=== PATIENT | female | born 1985 | race Caucasian/White ===

== ENCOUNTER → 2016-07-10 | Outpatient (CLI) | payer OTHER ==
[2016-07-10 16:53] LABS: BASO % 0.2 %; EOS % 0.6 %; HEMATOCRIT 40.6 % (37-47); LYMPH % 24.3 %; LYMPH ABS # 1.53 K/uL (1.2-3.4); MEAN CELL VOLUME 80.2 fL (80-100); MEAN CORPUSCULAR HEMOGLOBIN 28.1 pg (25-34); MEAN PLATELET VOLUME 11.4 fL (7.4-10.4); MONO % 5.7 %; NEUT % 69.2 %; PLATELET COUNT 220 K/uL (130-400); RED BLOOD COUNT 5.06 M/uL (4.2-5.4)
[2016-07-10 16:54] LABS: BASO ABS # 0.01 K/uL (0-0.2); COMPLETE YES
[2016-07-10 17:02] LABS: C-REACTIVE PROTEIN 0.94 mg/dl (0-0.29); RHEUMATOID FACTOR < 10.0 U/mL (0-15)
[2016-07-10 17:12] LABS: SYNOVIAL FLUID APPEARANCE CLEAR; SYNOVIAL FLUID COLOR YELLOW; SYNOVIAL FLUID MONONUC RELAT 67.9 %; SYNOVIAL FLUID POLYNUC RELAT 32.1 %
[2016-07-10 17:35] LABS: LYME DISEASE AB IGG NEG (NEG); LYME DISEASE AB IGM NEG (NEG)
[2016-07-12 15:32] LABS: LYME DNA PCR CSF OR SYNOVIAL Not detected (Not Detected); LYME DNA SOURCE Synovial Fluid
[2016-07-13 20:18] LABS: HLA-B27** TC 528X NEGATIVE (NEGATIVE)
== END | disposition home or self-care (01) ==
LOC: C.LABBC 12:40
PROVIDERS: ATTEND Orthopaedic Surgery Sports Medicine
DX: M25.562 Pain in left knee (principal)

== ENCOUNTER 2017-06-30 17:24 | Emergency (ER) | payer OTHER ==
[~2017-06-30] VITALS: Ht 182.9 cm; Wt 72.3 kg
[2017-06-30 17:36] VITALS: TEMP 36.5; Ht 182.9 cm; Wt 72.3 kg
[2017-06-30] MEDS ORDERED: SODIUM CHLORIDE 0.9% 1000ML 1,000 ML IV STA (17:37)
[2017-06-30] MEDS ORDERED: ONDANSETRON INJ 2 MG/ML 2 ML VIAL IV STA (17:37)
[2017-06-30 17:53] LABS: BASO % 0.2 %; BASO ABS # 0.01 K/uL (0-0.2); EOS % 0.2 %; EOS ABS # 0.01 K/uL (0-0.5); HEMATOCRIT 43.7 % (37-47); HEMOGLOBIN 15.4 g/dL (12.0-16.0); IG# 0.01 K/uL (0.00-0.02); LYMPH % 9.3 %; LYMPH ABS # 0.52 K/uL (1.2-3.4); MEAN CELL VOLUME 82.3 fL (80-100); MEAN CORPUSCULAR HGB CONC 35.2 g/dl (32-36); MEAN PLATELET VOLUME 10.5 fL (7.4-10.4); MONO % 1.1 %; MONO ABS # 0.06 K/uL (0.11-0.59); PLATELET COUNT 215 K/uL (130-400); RED CELL DISTRIBUTION WIDTH CV 13.7 % (11.5-14.5); RED CELL DISTRIBUTION WIDTH SD 41.2 fL (36.4-46.3); WHITE BLOOD COUNT 5.61 K/uL (4.8-10.8)
[2017-06-30 18:01] LABS: PTT PATIENT 25.4 SECONDS (21.0-31.0)
[2017-06-30 18:02] LABS: ALBUMIN 3.9 gm/dl (3.4-5.0); ALT/SGPT 40 U/L (12-78); AST/SGOT 24 U/L (15-37); BLOOD UREA NITROGEN 16 mg/dl (7-18); CALCIUM 9.2 mg/dl (8.5-10.1); CARBON DIOXIDE 26 mmol/L (21-32); CREATININE 1.06 mg/dl (0.60-1.20); GLUCOSE 347 mg/dl (70-99); LIPASE 158 U/L (73-393); POTASSIUM 3.6 mmol/L (3.5-5.1); SODIUM 140 mmol/L (136-145)
--- NOTE | 2017-06-30 18:05 | EMERGENCY ROOM VISIT NOTE ---
History Report prepared by [place]: Caryn Ding Under the Supervision of: Dr. Link Sanders D.O. First contact with patient: 17:33 Chief Complaint: ABDOMINAL PAIN Stated Complaint: HYPERGLYCEMIA Nursing Triage Summary: Patient arrived via ems from home with complaints of abdominal pain. HX: gastric bypass 16 months ago, anxiety. Patient reports having green discharge from vagina, currently taking antibiotics for that. weak & lethargic. EMS checked BSG and it was 390. PT also complaining of sore throat & LUNA. Per family patient was "unresponsive" ems stated she was A&Ox4 the entire ride here to er. History of Present Illness The patient is a 32 year old female who presents to the Emergency Room with complaints of persistent hyperglycemia starting earlier today. The patient presents to the ED by EMS. She received NSS and Zofran in route. The patient has been weak and fatigued today. She checked her blood sugar and found that it was 477. The patient was borderline diabetic prior to her gastric bypass 16 months ago, but is currently not being treated for diabetes. She reports chest pain which worsens with breathing. She is having double vision. She is having pain in her ankles which shoots up her legs. She has been having green vaginal discharge. She was seen by a doctor yesterday and reports that she was started on Keflex for a yeast infection. She was last sexually active 1 year ago. She denies any fever, SOB, or leg swelling. She has a history of asthma, cholecystectomy, and complete hysterectomy. She denies any tobacco, drug, or alcohol use. She had a scope 3 weeks ago which found an ulcer. Source of History: patient, nursing staff Onset: earlier today Position: other (global) Symptom Intensity: 477 Quality: other (hyperglycemia) Timing: other (persistent) Associated Symptoms: + chest pain, + fatigue, + weakness, No fevers, No SOB Review of Systems See HPI for pertinent positives & negatives. A total of 10 systems reviewed and were otherwise negative. Past Medical & Surgical Medical Problems: (1) Asthma Surgical Problems: (1) S/P cholecystectomy (2) S/P complete hysterectomy (3) S/P gastric bypass Family History No pertinent family history stated. Social History Smoking Status: Never Smoker Marital Status: Occupation Status: employed Physical Exam Vital Signs Date Time Temp Pulse Resp B/P (MAP) Pulse Ox O2 Delivery O2 Flow Rate FiO2 06/30/17 21:52 61 15 114/77 99 06/30/17 21:01 79 15 100 Room Air 06/30/17 21:00 105/81 06/30/17 20:46 53 14 100 06/30/17 20:31 67 17 100 06/30/17 20:30 103/78 06/30/17 20:16 59 14 100 06/30/17 20:01 54 15 108/77 06/30/17 19:46 63 23 100 06/30/17 19:31 69 13 120/73 100 06/30/17 19:16 76 17 100 06/30/17 19:11 110/71 06/30/17 19:10 62 17 100 Room Air 06/30/17 17:36 36.5 81 18 110/76 100 Room Air 06/30/17 17:32 81 Physical Exam GENERAL: Patient is awake, alert, answering question appropriately, does not appear to be in pain. EYES: The conjunctivae are clear. The pupils are round and reactive. EARS, NOSE, MOUTH AND THROAT: The nose is without any evidence of any deformity. Mucous membranes are moist tongue is midline NECK: The neck is nontender and supple. RESPIRATORY: Normal respiratory effort is noted there is no evidence of wheezing rhonchi or rales CARDIOVASCULAR: Regular rate and rhythm noted there no murmurs rubs or gallops normal S1 normal S2 GASTROINTESTINAL: The abdomen is soft and nondistended. There was no guarding or rigidity noted. Epigastric tenderness to palpation. MUSCULOSKELETAL/EXTREMITIES: There is no evidence of gross deformity full range of motion is noted in the hips and shoulders SKIN: There is no obvious evidence of any rash. There are no petechiae, pallor or cyanosis noted. NEUROLOGIC: Patient is awake alert and oriented x3 strength is symmetric patellar reflexes are 2+ bilaterally Medical Decision & Procedures ER Provider Diagnostic Interpretation: X-ray results as stated below per interpretation by me and the radiologist. Radiology results as stated below per my review and radiologist interpretation: CHEST ONE VIEW PORTABLE CLINICAL HISTORY: Abdominal pain. COMPARISON STUDY: No previous studies for comparison. FINDINGS: Lung volumes are normal. No pneumothorax or pleural effusion is noted. Lungs are clear. Cardiac size is normal. Mediastinal contours are normal. There is no evidence for pulmonary edema. IMPRESSION: No acute cardiopulmonary findings. Electronically signed by: Bud Salmeron M.D. 06/30/2017 6:36 PM Dictated Date/Time: 06/30/2017 6:[address] OF THE HEAD WITHOUT CONTRAST CLINICAL HISTORY: Altered mental status. COMPARISON STUDY: No previous studies for comparison. CT DOSE: 537.48 mGy.cm TECHNIQUE: Helical axial images of the head were obtained without IV contrast. Automated exposure control was utilized for the study. A dose lowering technique was utilized adhering to the principles of ALARA. FINDINGS: No acute intracranial hemorrhage is present. Ventricular system is unremarkable. There is fullness at the level the foramen magnum. Sotelo-white differentiation is maintained. There are no findings to suggest acute dural sinus thrombosis or acute territorial infarct. There are no significant calvarial abnormalities. Visualized portions of the sinuses and mastoid air cells are clear. IMPRESSION: 1. No acute intracranial findings. 2. Fullness at the level of the foramen magnum. This may reflect a Chiari 1 malformation. Electronically signed by: Bud Salmeron M.D. 06/30/2017 7:19 PM Dictated Date/Time: 06/30/2017 7:[address] OF THE ABDOMEN AND PELVIS WITHOUT CONTRAST CLINICAL HISTORY: Upper abdominal pain. COMPARISON STUDY: No previous studies for comparison. TECHNIQUE: Axial images of the abdomen and pelvis were obtained without IV contrast. Images were reviewed in the axial, sagittal, and coronal planes. A dose lowering technique was utilized adhering to the principles of ALARA. FINDINGS: Evaluation of the abdomen and pelvis is suboptimal on this unenhanced exam. There is no hydronephrosis. No renal calculi are present. Pelvic calcifications likely reflect phleboliths although the course of the ureters is difficult to follow on this exam. Unenhanced images of liver, spleen, adrenal glands and pancreas are unremarkable. The patient is status post Kenny-en-Y gastric bypass. There is no evidence for a bowel obstruction. The appendix is normal. There is no lymphadenopathy. No free fluid is identified. There are no suspicious osseous lesions. IMPRESSION: 1. No acute process within the abdomen or pelvis although evaluation significantly compromised given lack of contrast and paucity of intra-abdominal fat. 2. Status post Kenny-en-Y gastric bypass. No bowel obstruction. Normal appendix. Electronically signed by: Bud Salmeron M.D. 06/30/2017 9:00 PM Dictated Date/Time: 06/30/2017 7:21 PM Laboratory Results 06/30/17 16:44 Red Blood Count 5.31, Mean Corpuscular Volume 82.3, Mean Corpuscular Hemoglobin 29.0, Mean Corpuscular Hemoglobin Concent 35.2, Mean Platelet Volume 10.5, Neutrophils (%) (Auto) 89.0, Lymphocytes (%) (Auto) 9.3, Monocytes (%) (Auto) 1.1, Eosinophils (%) (Auto) 0.2, Basophils (%) (Auto) 0.2, Neutrophils # (Auto) 5.00, Lymphocytes # (Auto) 0.52, Monocytes # (Auto) 0.06, Eosinophils # (Auto) 0.01, Basophils # (Auto) 0.01 06/30/17 16:44 Test 06/30/17 00:00 06/30/17 16:44 06/30/17 17:55 06/30/17 17:58 Urine Color YELLOW Urine Appearance CLEAR (CLEAR) Urine pH 7.0 (4.5-7.5) Urine Specific [place] 1.036 (1.000-1.030) Urine Protein NEG (NEG) Urine Glucose (UA) 3+ (NEG) Urine Ketones NEG (NEG) Urine Occult Blood NEG (NEG) Urine Nitrite NEG (NEG) Urine Bilirubin NEG (NEG) Urine Urobilinogen NEG (NEG) Urine Leukocyte Esterase MODERATE (NEG) Urine WBC (Auto) >30 /hpf (0-5) Urine RBC (Auto) 0-4 /hpf (0-4) Urine Hyaline Casts (Auto) 1-5 /lpf (0-5) Urine Epithelial Cells (Auto) >30 /lpf (0-5) Urine Bacteria (Auto) 2+ (NEG) Urine Crystals (NONE PRSENT) Urine Opiates Screen NEG (NEG) Urine Methadone, Qualitative NEG (NEG) Urine Barbiturates NEG (NEG) Urine Phencyclidine (PCP) Level NEG (NEG) Ur Amphetamine/Methamphetamine NEG (NEG) MDMA (Ecstasy) Screen NEG (NEG) Urine Benzodiazepines Screen NEG (NEG) Urine Cocaine Metabolite NEG (NEG) Urine Marijuana (THC) NEG (NEG) White Blood Count 5.61 K/uL (4.8-10.8) Red Blood Count 5.31 M/uL (4.2-5.4) Hemoglobin 15.4 g/dL (12.0-16.0) Hematocrit 43.7 % (37-47) Mean Corpuscular Volume 82.3 fL (80-100) Mean Corpuscular Hemoglobin 29.0 pg (25-34) Mean Corpuscular Hemoglobin Concent 35.2 g/dl (32-36) Platelet Count 215 K/uL (130-400) Mean Platelet Volume 10.5 fL (7.4-10.4) Neutrophils (%) (Auto) 89.0 % Lymphocytes (%) (Auto) 9.3 % Monocytes (%) (Auto) 1.1 % Eosinophils (%) (Auto) 0.2 % Basophils (%) (Auto) 0.2 % Neutrophils # (Auto) 5.00 K/uL (1.4-6.5) Lymphocytes # (Auto) 0.52 K/uL (1.2-3.4) Monocytes # (Auto) 0.06 K/uL (0.11-0.59) Eosinophils # (Auto) 0.01 K/uL (0-0.5) Basophils # (Auto) 0.01 K/uL (0-0.2) RDW Standard Deviation 41.2 fL (36.4-46.3) RDW Coefficient of Variation 13.7 % (11.5-14.5) Immature Granulocyte % (Auto) 0.2 % Immature Granulocyte # (Auto) 0.01 K/uL (0.00-0.02) Prothrombin Time 10.0 SECONDS (9.0-12.0) Prothromb Time International Ratio 1.0 (0.9-1.1) Activated Partial Thromboplast Time 25.4 SECONDS (21.0-31.0) Partial Thromboplastin Ratio 1.0 Anion Gap 8.0 mmol/L (3-11) Est Creatinine Clear Calc Drug Dose 85.4 ml/min Estimated GFR () 79.3 Estimated GFR (Non- 68.5 BUN/Creatinine Ratio 15.2 (10-20) Calcium Level 9.2 mg/dl (8.5-10.1) Total Bilirubin 0.4 mg/dl (0.2-1) Direct Bilirubin < 0.1 mg/dl (0-0.2) Aspartate Amino Transf (AST/SGOT) 24 U/L (15-37) Alanine Aminotransferase (ALT/SGPT) 40 U/L (12-78) Alkaline Phosphatase 101 U/L (45-117) Troponin I < 0.015 ng/ml (0-0.045) Total Protein 7.3 gm/dl (6.4-8.2) Albumin 3.9 gm/dl (3.4-5.0) Lipase 158 U/L (73-393) Beta-Hydroxybutyric Acid 0.59 mg/dL (0.2-2.81) Salicylates Level < 1.7 mg/dl (2.8-20) Acetaminophen Level < 2 ug/ml (10-30) Bedside D-Dimer 350 ng/mlFEU (0-450) Venous Blood pH 7.39 (7.36-7.41) Venous Blood Partial Pressure CO2 45 mmHg (38.0-50.0) Venous Blood Partial Pressure O2 38 mmHg Venous Blood HCO3 27 mmol/L Venous Blood Oxygen Saturation 70.1 % Venous Blood Base Excess 1.4 mEq/L Laboratory results per my review. Medications Administered Medications (Trade) Dose Ordered Sig/Janeth Route Start Time Stop Time Status Last Admin Dose Admin Sodium Chloride 1,000 ml @ 999 mls/hr Q1H1M STAT IV 06/30/17 17:37 06/30/17 18:37 DC 06/30/17 17:53 999 MLS/HR Ondansetron HCl (Zofran Inj) 4 mg NOW STAT IV 06/30/17 17:37 06/30/17 17:40 DC 06/30/17 17:53 4 MG Ceftriaxone Sodium (Rocephin Inj) 1 gm NOW STAT IV 06/30/17 20:54 06/30/17 20:55 DC 06/30/17 21:01 1 GM Oxycodone HCl (Roxicodone Immediate Rel Tab) 5 mg NOW STAT PO 06/30/17 20:54 06/30/17 20:55 DC 06/30/17 21:01 5 MG Oxycodone HCl (Roxicodone Immediate Rel 5MG Home Pack) 1 homepack UD ONCE PO 06/30/17 21:15 06/30/17 21:16 DC 06/30/17 21:15 1 HOMEPACK Ondansetron HCl (ZOFRAN ODT 4MG Home Pack) 1 homepack UD ONCE PO 06/30/17 21:15 06/30/17 21:16 DC 06/30/17 21:15 1 HOMEPACK Fluconazole (Diflucan Tab) 150 mg NOW ONCE PO 06/30/17 21:30 06/30/17 21:31 DC 06/30/17 21:30 150 MG ECG Per My Interpretation Indication: chest pain Rate (beats per minute): 74 Rhythm: normal sinus Findings: no ectopy, other (no acute ST segments) Comparison ECG Date: no prior available ED Course 1735: The patient was evaluated in room B2. A complete history and physical examination were performed. 1736: Zofran Inj 4 mg IV, NSS 1000 ml @ 999 mls/hr IV. 2053: Oxycodone HCl 5 mg PO, Rocephin Inj 1 gm IV. 2114: Zofran Odt 4 mg 1 homepack PO, Oxycodone HCl 1 homepack PO. 2121: Upon reevaluation, the patient is resting comfortably. I discussed the results and treatment plan with her. She verbalized agreement of the treatment plan. She was discharged home. 2129: Fluconazole 150 mg PO. Medical Decision Prior records/ancillary studies reviewed. Triage Nursing notes reviewed. The patient's history was concerning for abdominal pain. Differential diagnosis: Etiologies such as appendicitis, diverticulitis, PUD, biliary pathology, UTI, pancreatitis, obstruction, mesenteric ischemia, aortic pathology, infections, inflammatory bowel disease, renal colic, as well as others were entertained. The patient is a 32-year-old female who presented to the emergency department with multiple complaints. She complained of chest pain as well as abdominal pain. The patient states that she was seen at an outside facility recently and started on antibiotics for resumed urinary tract infection. Her urine here appears to show signs of infection. She states that she has not been sexually active in a long time so I do not feel this is consistent with an STD at this time. The patient was treated with pain medication and IV fluids in the emergency department. She was also given IV antibiotics for presumed urinary tract infection. I discussed patient's laboratory and radiographic studies with her. She was encouraged to rest and avoid any strenuous activity. She was also encouraged to continue all medications as prescribed and return to the emergency department immediately if symptoms change or worsen or the need arises. Otherwise she was encouraged to follow-up with her primary care physician. Medication Reconcilliation Current Medication List: was personally reviewed by me Blood Pressure Screening Patient's blood pressure: Normal blood pressure Blood pressure disposition: Did not require urgent referral Impression Primary Impression: Abdominal pain Additional Impressions: Chest pain Pleurisy UTI (urinary tract infection) Scribe Attestation The scribe's documentation has been prepared under my direction and personally reviewed by me in its entirety. I confirm that the note above accurately reflects all work, treatment, procedures, and medical decision making performed by me. Departure Information Dispostion Home / Self-Care Referrals Jhony Copeland M.D. (PCP) Forms Call Back Authorization, HOME CARE DOCUMENTATION FORM, IMPORTANT VISIT INFORMATION Patient Instructions Abdominal Pain, [facility], Urinary Tract Infecs Women Additional Instructions Continue to take the Keflex as instructed. Continue all other medications as prescribed. Call your family doctor to schedule a follow-up appointment. Call your SUPPORT ASSISTANT physician as well to schedule follow-up appointment. Problem Qualifiers Primary Impression: Abdominal pain Abdominal location: epigastric Qualified Codes: R10.13 - Epigastric pain Additional Impressions: Chest pain Chest pain type: unspecified Qualified Codes: R07.9 - Chest pain, unspecified UTI (urinary tract infection) Urinary tract infection type: site unspecified Hematuria presence: without hematuria Qualified Codes: N39.0 - Urinary tract infection, site not specified
[2017-06-30 18:08] LABS: ALKALINE PHOSPHATASE 101 U/L (45-117); TOTAL PROTEIN 7.3 gm/dl (6.4-8.2)
--- NOTE | 2017-06-30 18:37 | DIAGNOSTIC IMAGING REPORT ---
CHEST ONE VIEW PORTABLE CLINICAL HISTORY: Abdominal pain. COMPARISON STUDY: No previous studies for comparison. FINDINGS: Lung volumes are normal. No pneumothorax or pleural effusion is noted. Lungs are clear. Cardiac size is normal. Mediastinal contours are normal. There is no evidence for pulmonary edema. IMPRESSION: No acute cardiopulmonary findings. Electronically signed by: Bud Salmeron M.D. 06/30/2017 6:36 PM Dictated Date/Time: 06/30/2017 6:36 PM
--- NOTE | 2017-06-30 19:21 | DIAGNOSTIC IMAGING REPORT ---
CT OF THE HEAD WITHOUT CONTRAST CLINICAL HISTORY: Altered mental status. COMPARISON STUDY: No previous studies for comparison. CT DOSE: 537.48 mGy.cm TECHNIQUE: Helical axial images of the head were obtained without IV contrast. Automated exposure control was utilized for the study. A dose lowering technique was utilized adhering to the principles of ALARA. FINDINGS: No acute intracranial hemorrhage is present. Ventricular system is unremarkable. There is fullness at the level the foramen magnum. Sotelo-white differentiation is maintained. There are no findings to suggest acute dural sinus thrombosis or acute territorial infarct. There are no significant calvarial abnormalities. Visualized portions of the sinuses and mastoid air cells are clear. IMPRESSION: 1. No acute intracranial findings. 2. Fullness at the level of the foramen magnum. This may reflect a Chiari 1 malformation. Electronically signed by: Bud Salmeron M.D. 06/30/2017 7:19 PM Dictated Date/Time: 06/30/2017 7:16 PM
[2017-06-30] MEDS ORDERED: CEFTRIAXONE SOD INJ 1 GM ADDVIAL IV STA (20:54)
[2017-06-30] MEDS ORDERED: OXYCODONE HCL IR 5 MG TAB (IMMEDIATE RELEASE) PO STA (20:54)
--- NOTE | 2017-06-30 21:01 | DIAGNOSTIC IMAGING REPORT ---
CT OF THE ABDOMEN AND PELVIS WITHOUT CONTRAST CLINICAL HISTORY: Upper abdominal pain. COMPARISON STUDY: No previous studies for comparison. TECHNIQUE: Axial images of the abdomen and pelvis were obtained without IV contrast. Images were reviewed in the axial, sagittal, and coronal planes. A dose lowering technique was utilized adhering to the principles of ALARA. FINDINGS: Evaluation of the abdomen and pelvis is suboptimal on this unenhanced exam. There is no hydronephrosis. No renal calculi are present. Pelvic calcifications likely reflect phleboliths although the course of the ureters is difficult to follow on this exam. Unenhanced images of liver, spleen, adrenal glands and pancreas are unremarkable. The patient is status post Kenny-en-Y gastric bypass. There is no evidence for a bowel obstruction. The appendix is normal. There is no lymphadenopathy. No free fluid is identified. There are no suspicious osseous lesions. IMPRESSION: 1. No acute process within the abdomen or pelvis although evaluation significantly compromised given lack of contrast and paucity of intra-abdominal fat. 2. Status post Kenny-en-Y gastric bypass. No bowel obstruction. Normal appendix. Electronically signed by: Bud Salmeron M.D. 06/30/2017 9:00 PM Dictated Date/Time: 06/30/2017 7:21 PM
[2017-06-30] MEDS ORDERED: OXYCODONE IR HOME PACK PO ONE (21:15)
[2017-06-30] MEDS ORDERED: ONDANSETRON HOME PACK 4MG OD TAB PO ONE (21:15)
[2017-06-30] MEDS ORDERED: FLUCONAZOLE 50 MG TAB PO ONE (21:30)
[2017-06-30 21:52] VITALS: BP 114/77; PULSE 61; O2SAT 99
== END 2017-06-30 21:54 | disposition home or self-care (01) ==
LOC: EDBD 17:24 → C.EDB 17:25
DX: R10.13 Epigastric pain (principal); R07.9 Chest pain, unspecified; R09.1 Pleurisy; N39.0 Urinary tract infection, site not specified; R73.9 Hyperglycemia, unspecified; R73.03 Prediabetes; H53.2 Diplopia; M25.571 Pain in right ankle and joints of right foot; M25.572 Pain in left ankle and joints of left foot; M79.604 Pain in right leg; M79.605 Pain in left leg; N89.8 Other specified noninflammatory disorders of vagina; J45.909 Unspecified asthma, uncomplicated; Z90.710 Acquired absence of both cervix and uterus